=== PATIENT | male | born 1980 | race Caucasian/White ===

== ENCOUNTER 2021-09-14 05:38 | Inpatient (IN) | payer OTHER ==
[~2021-09-14] VITALS: Ht 177.8 cm; Wt 80.5 kg
--- NOTE | 2021-09-14 06:00 | NUR ---
SHAVON FROM [facility] TO ER BED 10. AAOX4. NOT IN RESP DISTRESS. BREATHING EVEN AND UNLABORED . BROUGHT IN FOR MID STERNAL CHEST PAIN NO RADIATING 03/03 [place]. PER PT, HE FELT THE CHEST PAIN THEN GOT DIZZY SO HE WENT TO THE NURSING STATION [facility]. PT THEN HAD A SYNCOPAL EPISODE. PATIENT OBTAINED A LACERATION ON HIS LEFT RASTAFARI 2ND TO HEAD TRAUMA. PT WAS NOTED WITH 30-40 HEART RATE AND WAS GIVEN ATROPINE 1MG IV. EKG DONE. MD AT BEDSIDE. AWAITING MD ORDER
--- NOTE | 2021-09-14 06:07 | NUR ---
covid swab collected sent to lab
[2021-09-14 06:27] LABS: BASOPHILS % (AUTO) 0.8 % (0.0-2.0); EOSINOPHILS % (AUTO) 1.8 % (0.0-6.0); HEMATOCRIT 43 % (39-51); HEMOGLOBIN 14.4 g/dL (13.5-17.5); LYMPHOCYTES # (AUTO) 1.4 K/uL (0.8-4.8); LYMPHOCYTES % (AUTO) 32.2 % (20.0-44.0); MEAN CORPUSCULAR HGB CONC 34 g/dl (31.0-36.0); MEAN CORPUSCULAR VOLUME 97 fL (80-96); MONOCYTES # (AUTO) 0.5 K/uL (0.1-1.30); MONOCYTES % (AUTO) 11.4 % (2.0-12.0); NEUTROPHILS # (AUTO) 2.4 K/uL (1.8-8.9); NEUTROPHILS % (AUTO) 53.8 % (43.0-81.0); PLATELET COUNT (AUTO) 272 K/uL (150-450); WHITE BLOOD COUNT (AUTO) 4.4 K/uL (4.3-11.0)
[2021-09-14 06:44] LABS: CALCIUM, SERUM 8.8 mg/dL (8.5-10.1); CARBON DIOXIDE 27 mmol/L (21-32); CHLORIDE 107 mmol/L (98-107); GLUCOSE 88 mg/dL (74-106); POTASSIUM 4.2 mmol/L (3.5-5.1); SODIUM SERUM 139 mmol/L (136-145); UREA NITROGEN, BLOOD 19 mg/dL (7-18)
[2021-09-14] MEDS ORDERED: MORPHINE SULFATE INJ 2 MG/ML DISP.SYRIN IV PRN (08:00)
[2021-09-14] MEDS ORDERED: ONDANSETRON HCL/PF 4 MG/2 ML VIAL IVP PRN (08:00)
[2021-09-14] MEDS ORDERED: ACETAMINOPHEN 325 MG TABLET PO PRN (08:00)
[2021-09-14] MEDS ORDERED: MAG HYDROX/AL HYDROX/SIMETH 30 ML UDC PO PRN (08:00)
[2021-09-14] MEDS ORDERED: IV NS 0.9% 1,000 ML IV ONE (08:00)
[2021-09-14] MEDS ORDERED: NITROGLYCERIN 0.4 MG/TAB BOTTLE SL PRN (08:00)
[2021-09-14] MEDS ORDERED: DOCUSATE SODIUM 100 MG CAPSULE PO PRN (08:00)
[2021-09-14] MEDS ORDERED: ASPIRIN 81 MG TAB.CHEW ONE (09:00)
[2021-09-14] MEDS ORDERED: ALBU18HF2 IH (09:05)
[2021-09-14] MEDS ORDERED: DULO60CA45 PO (09:05)
[2021-09-14] MEDS ORDERED: TOPI100T38 PO (09:05)
[2021-09-14] MEDS ORDERED: RISP0.2515 PO (09:05)
[2021-09-14] MEDS: ASPIRIN 81 MG TAB.CHEW PO SCH (09:06)
--- NOTE | 2021-09-14 09:41 | NUR ---
BED 312
--- NOTE | 2021-09-14 09:42 | NUR ---
BED 313-1 T
--- NOTE | 2021-09-14 09:46 | NUR ---
REPORT GIVEN TO SALLIE NATHAN OF TELE UNIT
[2021-09-14] MEDS ORDERED: IV NS 0.9% 1,000 ML IV PRN (10:00)
[2021-09-14 10:15] VITALS: BP 102/59
[2021-09-14 16:00] VITALS: BP 99/55
[2021-09-14] MEDS ORDERED: ALBUTEROL SULFATE 8 GM HFA.AER.AD IH SCH (18:00)
[2021-09-14] MEDS ORDERED: risperiDONE 1 MG TABLET PO SCH (18:00)
--- NOTE | 2021-09-14 19:02 | NUR ---
TYPESETTING MACHINE TENDERCAR PARKER NOTE PATIENT A/O X4. BROUGHT TO UNIT @ 0950 FROM EMERGENCY DEPARTMENT VIA WHEELCHAIR WITH DIAGNOSIS SYNCOPE & CHEST PAIN. AMBULATES WITHOUT ASSIST & STEADY GAIT. PATIENT HAD NO C/O CHEST PAIN UPON ASSESSMENT AND THROUGHOUT SHIFT. DENIED HAVING HX OF CARDIAC D/O. SINUS RHYTHM WITH READING OF 83 ON EXTERNAL TELE MONITOR. IV ACCESS TO LAC WITH 20G INTACT AND PATENT. NS 1000ML RUNNING @ 100ML /HR. TOLERATED ALL CARE WELL. NO KNOWN ALLERGIES REPORTED AND FULL CODE STATUS. ABLE TO VERBALIZE ALL NEEDS. WILL CONTINUE TO MONITOR
[2021-09-14 20:45] VITALS: BP 107/53
--- NOTE | 2021-09-14 21:38 | NUR ---
RN OPENING NOTES.TELE RECEIVED PT IN BED AAOX4.CLAYTON WELL ON RM AIR NO SIGN SOB/DISTRESS NOTED.IV ACCESS LAC 20G.PATENT AND INTACT.NO COMPLAINE OF PAIN/DISCOMFORT AT THIS TIME.BED LOCKED AND LOW POSITION.WILL CONTINUE TO MONITOR.
[2021-09-15 00:34] VITALS: BP 118/66
[2021-09-15 04:46] VITALS: BP 103/52
--- NOTE | 2021-09-15 06:40 | NUR ---
RN CLOSING NOTES PT IN BED AAOX4.CLAYTON WELL ON RM AIR NO SIGN SOB/DISTRESS NOTED.IV ACCESS LAC 20G.PATENT AND INTACT.NO COMPLAINE OF PAIN/DISCOMFORT DURING SHIFT.ALL NEEDS ATTENDED,DUE MEDS GIVEN ORDER.SAFETY MEASURED INPLACE .BED LOCKED AND LOW POSITION.WILL ENDORSED TO NEXT SHIFT.
[2021-09-15 06:49] LABS: BASOPHILS % (AUTO) 0.5 % (0.0-2.0); EOSINOPHILS % (AUTO) 0.9 % (0.0-6.0); HEMATOCRIT 41 % (39-51); HEMOGLOBIN 14.1 g/dL (13.5-17.5); LYMPHOCYTES # (AUTO) 1.8 K/uL (0.8-4.8); LYMPHOCYTES % (AUTO) 34.5 % (20.0-44.0); MEAN CORPUSCULAR HGB CONC 34 g/dl (31.0-36.0); MEAN CORPUSCULAR VOLUME 95 fL (80-96); MONOCYTES # (AUTO) 0.6 K/uL (0.1-1.30); MONOCYTES % (AUTO) 10.7 % (2.0-12.0); NEUTROPHILS # (AUTO) 2.7 K/uL (1.8-8.9); NEUTROPHILS % (AUTO) 53.4 % (43.0-81.0); PLATELET COUNT (AUTO) 290 K/uL (150-450); RED BLOOD CELL COUNT(AUTO) 4.32 MIL/uL (4.5-6.0); WHITE BLOOD COUNT (AUTO) 5.1 K/uL (4.3-11.0)
[2021-09-15 07:14] LABS: THYROID STIMULATING HORMONE 1.067 uIU/mL (0.358-3.74)
[2021-09-15] MEDS: ALBUTEROL FS 2.5 MG/0.5 ML VIAL.NEB NEB SCH ×3 (07:35→19:30)
--- NOTE | 2021-09-15 07:46 | NUR ---
RN OPENING NOTE PATIENT AWAKE IN BED RESTING. A/O X4. NO S/S OF PAIN NOTED AT THIS TIME. ON ROOM AIR, NO DISTRESS OR SHORTNESS OF BREATH NOTED. IV ACCESS LAC #20G, INTACT, PATENT AND FLUSHING WELL. PATIENT ON EXTERNAL APPARATUS CLEANER WITH CURRENT READING OF SB AND HR OF 57, NO CARDIAC DISTRESS NOTED. FALL AND SAFETY MEASURES IN PLACE, BED ALARM ON, BED IN LOW AND LOCK POSITION, CALL LIGHT AND TABLE WITHIN EASY REACH, SIDE RAILS UP X2. WILL CONTINUE TO MONITOR.
[2021-09-15 08:00] VITALS: BP 105/62
[2021-09-15 08:31] LABS: ALBUMIN 3.3 g/dL (3.4-5.0); BILIRUBIN,TOTAL 0.5 mg/dL (0.2-1.0); CALCIUM, SERUM 8.3 mg/dL (8.5-10.1); CREATININE 0.9 mg/dL (0.6-1.3); MAGNESIUM 2.2 mg/dL (1.8-2.4); PHOSPHORUS 3.2 mg/dL (2.5-4.9); POTASSIUM 3.8 mmol/L (3.5-5.1); TOTAL PROTEIN, SERUM 7.1 g/dL (6.4-8.2)
[2021-09-15] MEDS: NICOTINE PATCH (14MG) 14 MG PATCH.TD24 TD SCH (08:32)
[2021-09-15] MEDS: DULOXETINE HCL 30 MG CAPSULE.DR PO SCH (08:32)
[2021-09-15] MEDS: ASPIRIN 81 MG TAB.CHEW PO SCH (08:32)
[2021-09-15] MEDS: TOPIRAMATE 100 MG TABLET PO SCH ×2 (08:32→17:41)
[2021-09-15] MEDS ORDERED: Medication Not On Formulary EA (Duloxetine Hcl (Cymbalta) 60 MG) PO SCH (09:00)
--- NOTE | 2021-09-15 09:51 | NUR ---
RN NOTE DOCTOR TICO ORDER 1L BOLUS OF NS, ORDER PLACED.
[2021-09-15] MEDS ORDERED: IV NS 0.9% 1,000 ML IV ONE (10:00)
[2021-09-15 16:01] VITALS: BP 128/79
--- NOTE | 2021-09-15 18:50 | NUR ---
RN CLOSING NOTE PATIENT AWAKE IN BED RESTING. A/O X4. NO S/S OF PAIN NOTED AT THIS TIME. ON ROOM AIR, NO DISTRESS OR SHORTNESS OF BREATH NOTED. IV ACCESS LAC #20G, INTACT, PATENT AND FLUSHING WELL. ALL SCHEDULE MEDICATIONS ADMINISTERED. FALL AND SAFETY MEASURES IN PLACE, BED ALARM ON, BED IN LOW AND LOCK POSITION, CALL LIGHT AND TABLE WITHIN EASY REACH, SIDE RAILS UP X2. WILL ENDORSE TO WOOL WASHING MACHINE OPERATOR.
--- NOTE | 2021-09-15 19:30 | NUR ---
MSRN FULLY AWAKE, WILL BE DISCHARGE TOMORROW INSTEAD. PER REPORT, SO MK WANTED NEW COVID TEST AND RESULTS OF DRUG SCREEN. RESULTS FOR DRUG SCREEN PENDING OF THIS TIME.
[2021-09-15 20:00] VITALS: BP 133/83
--- NOTE | 2021-09-15 21:00 | NUR ---
[facility] URINALYSIS ORDERED PATIENT INSTRUCTED . WELL UNDERSTOOD. AGREED TO STAY OVERNIGHT.
[2021-09-16 00:09] LABS: BILIRUBIN,URINE NEGATIVE (NEGATIVE); COLOR,URINE YELLOW (YELLOW); LEUKOCYTE ESTERASE ,URINE NEGATIVE (NEGATIVE); NITRITE, URINE NEGATIVE (NEGATIVE); PH,URINE 6.5 (5.0-8.0); PROTEIN,URINE NEGATIVE (NEGATIVE); UGLUCOSE NEGATIVE (NEGATIVE); UROBILINOGEN,URINE 0.2 EU/dL (0.2)
[2021-09-16] MEDS: ALBUTEROL FS 2.5 MG/0.5 ML VIAL.NEB NEB SCH ×2 (01:30→07:35)
--- NOTE | 2021-09-16 06:39 | NUR ---
MSRN COVID TEST DONE SEND TO LAB. WILLING TO GO BACK TO [facility] PATIENT AGREED OF THIS TIME.
[2021-09-16 06:51] LABS: BASOPHILS % (AUTO) 0.8 % (0.0-2.0); EOSINOPHILS % (AUTO) 1.7 % (0.0-6.0); HEMATOCRIT 44 % (39-51); LYMPHOCYTES % (AUTO) 38.4 % (20.0-44.0); MEAN CORPUSCULAR HGB CONC 34 g/dl (31.0-36.0); MEAN CORPUSCULAR VOLUME 96 fL (80-96); MONOCYTES # (AUTO) 0.6 K/uL (0.1-1.30); MONOCYTES % (AUTO) 11.5 % (2.0-12.0); NEUTROPHILS # (AUTO) 2.5 K/uL (1.8-8.9); NEUTROPHILS % (AUTO) 47.6 % (43.0-81.0); PLATELET COUNT (AUTO) 288 K/uL (150-450); WHITE BLOOD COUNT (AUTO) 5.2 K/uL (4.3-11.0)
[2021-09-16 07:16] LABS: CALCIUM, SERUM 8.9 mg/dL (8.5-10.1); CREATININE 0.8 mg/dL (0.6-1.3); MAGNESIUM 2.2 mg/dL (1.8-2.4); PHOSPHORUS 3.3 mg/dL (2.5-4.9); POTASSIUM 3.8 mmol/L (3.5-5.1)
--- NOTE | 2021-09-16 07:20 | NUR ---
RN OPENING NOTES RECEIVED PATIENT AWAKE IN BED RESTING. A/O X4. DENIES HAVING PAIN AT THIS TIME. DENIES HAVING SUICIDAL THOUGHTS OR INTENT TO HARM SELF/OTHERS. ON ROOM AIR, BREATHING EVEN AND UNLABORED. IV ACCESS LAC G#20, INTACT, PATENT AND FLUSHING WELL. SAFETY PRECAUTIONS IN PLACE. WILL CONTINUE TO MONITOR
[2021-09-16 08:00] VITALS: BP 114/70
[2021-09-16] MEDS: DULOXETINE HCL 30 MG CAPSULE.DR PO SCH (08:28)
[2021-09-16] MEDS: TOPIRAMATE 100 MG TABLET PO SCH (08:28)
[2021-09-16] MEDS: NICOTINE PATCH (14MG) 14 MG PATCH.TD24 TD SCH (08:29)
[2021-09-16 09:33] LABS: ALBUMIN 3.5 g/dL (3.4-5.0); BILIRUBIN,DIRECT 0.2 mg/dL (0.0-0.2); BILIRUBIN,TOTAL 0.7 mg/dL (0.2-1.0); TOTAL PROTEIN, SERUM 7.6 g/dL (6.4-8.2)
--- NOTE | 2021-09-16 10:33 | NUR ---
GEN just notified by that pt. "just wants to return to [facility] to picker/puller his belonging not for readmission". GEN called [facility] and spoke to RN, Jo in Unit 2 who stated that they have patient's items and pt. can just got to [facility] lobby and state that he is there to picker/puller his items. GEN notified patient's nurse, Rowena.
--- NOTE | 2021-09-16 10:57 | NUR ---
SS Note: SS consult requested for this pt. is a 40 year old male who was admitted to [facility] from [facility] on 09/14/2021 due to chest pain and syncopal episode. The pt. is currently alert & oriented x 4 and makes good eye contact. The pt. appears well-groomed with euthymic mood & affect. The pt. denies SI/HI and denies hallucinations. Per EMR, the pt. ahs Hx. of mental health issues, meth and alcohol abuse. SW offered pt. drug rehab referral and pt. refused. Pt. presented guarded and refused to disclose additional information. The pt. states he is independent with all his ADLs and ambulation. Pt. states he will go to [facility] to warehouse picker his items first. Pt. resides at [[address] [place] [address]; [phone]]. SW provided pt. with addiction and mental health resources and pt. accepted them. SW provided pt. with tap card and bus directions to [facility]. Pt. accepted them. GEN provided pt. with the following resources: ADDICTION RESOURCES For Drugs and Alcohol [facility] sober living Referrals For Rehabilitation once sober Address:[address] [place] [address] [facility] [address] [place] [address] Detox/residential [facility] Substance Abuse Helpline ([facility]) Outpatient, residential treatment, recovery support for youth/adults [facility] www.actionfamilycounseling.[employer]Egg [facility] Teen programs for drug/alcohol education and support [facility] [place]. Program for adults, sliding scale provides support and education Ingrid [employer] www.Nordex OnlineefPowerPlay Sports Organizationation.org [place]; Detox/residential treatment programs; transition to sober living [facility] www.cri-help.org [place]; Outpatient and residential treatment programs; transition to sober living [facility] TEL: [phone] [facility] Drug Abuse Recovery [facility]; Outpatient education and supportive programs for teens and adults [facility] [facility] www.oasiswomensrecovery.org Cheryl; Residential treatment and work program for females only [facility] www.PlanSource Holdingshouse.org [place]: Outpatient/residential treatment program for teens and young adults [facility] [place] www.[facility].org [place] Detox, inpatient, outpatient for adults and youth [facility], [facility]. [place]; Outpatient programs and referrals to community residential programs. Alcoholics Anonymous -SFV information and meeting and scheduleswww.aa-intergroup.org Mikey https://al-lowell.org/ Schriever support groups for family of alcoholics. Marijuana Anonymous www.FundationistrMedSynergies6.org -SFV listing of meetings Narcotics Anonymous www.na.org SOBER LIVING RESOURCES [facility] www.soberhousing.net A non-profit agency that provides resources to recovery and sober living homes throughout [facility] Sober Living Homes: A Work in ProgressConstanza [facility] Recovery Advocates, [place] [facility] Masoud [facility]om[facility] Sober Living Homes: [facility] [phone] [place], [place] [facility], Operated By [facility] Sober Living Homes: [facility] Counseling--Outpatient [facility] [address] [facility] [address] [place] [address] (Specializes in in-depth psychotherapy for emotional distress: anxiety, depression, interpersonal conflicts, life transitions, childhood abuse) [facility] [address] [place] [address] (Assist with solving problem marital difficulties, separation & divorce, aging parents, & grief, chronic & terminal illness) [facility] [address] [place] [address] (Deal with loss & grief, anxiety, marital difficulties) Homebound/Mental Health Services [address] [facility] [address] [place] [address] (Provide in-home mental services to people who are incapable of leaving their homes) [facility] for Needs of the Elderly Senior Service/Resource Center [address] [place] [address] [facility] [address] [facility] [place] [address] Mental Health Services [facility] [address] [place] [address] Services: Outpatient therapy for children, teens, young adults, adults, older adults, and families; Psychiatric services, medication support Psychiatric Outpatient Services [facility] Partial Hospitalization and Intensive Outpatient Program (Managed Care and [place] Only)[address] [facility] [phone] [facility] Partial Hospitalization and Outpatient Mtholpt94612 [facility] [address] [place], [place] [phone] [facility] [place] Vvk[address] [facility] [address] [place], [place] [phone] [facility] Partial Hospitalization and Outpatient Mluosog[address] [place], [phone] Crisis and Hotline Telephone Numbers 24-Hour service unless stated [place] Crisis Hotlines: [place] Facishare. Mental Health/Crisis Line........596.983.1212 Suicide Prevention Center (24 Hours).......802.682.3948 Suicide Prevention Crisis Center.......[phone] (24 Hours) Assaults Against Women Hotline.........321.747.7532 (24 Hours -- [facility]) Women and Children Crisis Correction...........[phone] (24 Hours) Child Abuse Hotline............757.636.9349 [facility] Rape Treatment Center (24 Hours)..........[phone] Alcoholics Anonymous (24 Hours)..........[phone] Cocaine Anonymous (24 Hours)............[phone] Narcotics Anonymous (24 Hours)..........[phone] Shilpi Hernandez [facility] [address], [place] [address]
--- NOTE | 2021-09-16 11:20 | NUR ---
BILLING SUPERVISOR NOTES PATIENT MEDICALLY CLEAR FOR DISCHARGE. A/O X4. VERBALLY DENIES HAVING SUICIDAL THOUGHTS OR INTENT TO HARM SELF/OTHERS. DISCHARGE INSTRUCTIONS PROVIDED TO PATIENT. PATIENT VERBALLY EXPRESSED UNDERSTANDING. EXIT CARE PACKET PROVIDED. ALL BELONGINGS ACCOUNTED FOR AND DOCUMENTS SIGNED. IV ACCESS REMOVED, NO BLEEDING NOTED AT SITE. ID BAND REMOVED. PATIENT LEFT HOSPITAL ACCOMPANIED BY SELF.
== END 2021-09-16 11:30 | disposition home or self-care (01) | DRG 48 ==
LOC: ER 05:49 → TELE 09:24 → MED 09-15 09:13
PROVIDERS: ADMIT Registered Nurse; ATTEND Registered Nurse
DX: G90.8 Other disorders of autonomic nervous system (principal); N17.9 Acute kidney failure, unspecified; E86.0 Dehydration; J45.909 Unspecified asthma, uncomplicated; S01.81XA Laceration without foreign body of other part of head, initial encounter; F10.11 Alcohol abuse, in remission; M94.0 Chondrocostal junction syndrome [Tietze]; R00.1 Bradycardia, unspecified; F17.200 Nicotine dependence, unspecified, uncomplicated; Z20.822 Contact with and (suspected) exposure to COVID-19; Y90.9 Presence of alcohol in blood, level not specified; F15.11 Other stimulant abuse, in remission; Z86.59 Personal history of other mental and behavioral disorders; Z79.51 Long term (current) use of inhaled steroids; Z79.899 Other long term (current) drug therapy; W19.XXXA Unspecified fall, initial encounter; Y92.9 Unspecified place or not applicable
CPT/HCPCS: 36415; 71045-TC; 76700-TC; 80048-TC; 80053-TC; 80076-TC; 83735-TC; 84100-TC; 84443-TC; 84484-TC; 85025-TC; 87081-TC; 93307-TC; 93880-TC; C9803; G0378; J7030

== ENCOUNTER 2024-05-18 21:48 | Emergency (ER) | payer OTHER ==
[~2024-05-18 21:48] MED LIST: ALBU18HF2 IH; DULO60CA45 PO; RISP0.2515 PO; TOPI100T38 PO
== END 2024-05-19 02:31 | disposition left against medical advice (07) ==
LOC: ER 21:57
DX: R44.0 Auditory hallucinations (principal); Z53.21 Procedure and treatment not carried out due to patient leaving prior to being seen by health care provider

== ENCOUNTER 2024-05-19 06:25 | Emergency (ER) | payer OTHER | END 2024-05-19 07:42 | disposition left against medical advice (07) | LOC: ER 06:27 | DX: R44.0 Auditory hallucinations (principal); Z53.21 Procedure and treatment not carried out due to patient leaving prior to being seen by health care provider ==